=== PATIENT | male | born 1955 | race Caucasian/White ===

== ENCOUNTER 2020-11-10 16:31 | Outpatient (REF) | payer BC, SELFPAY | END 2020-11-10 16:32 | disposition home or self-care (01) | LOC: HO.LNP 16:31 | PROVIDERS: Visit Provider Physician Assistant Medical | DX: J32.9 Chronic sinusitis, unspecified (principal); Z20.822 Contact with and (suspected) exposure to COVID-19 | CPT/HCPCS: U0003; U0005 ==